=== PATIENT | female | born 1975 | race Caucasian/White ===

== ENCOUNTER 2019-10-18 11:30 | Emergency (ER) | payer SELFPAY ==
[~2019-10-18] VITALS: Ht 157.5 cm; Wt 78.9 kg
[2019-10-18 12:02] VITALS: Ht 157.5 cm; Wt 78.9 kg
[2019-10-18 13:00] LABS: microscopic required? NO
[2019-10-18 13:17] LABS: urine erythrocyte NEGATIVE (NEGATIVE)
[2019-10-18 15:38] VITALS: BP 111/50
== END 2019-10-18 15:38 | disposition home or self-care (01) ==
LOC: ED 11:30
PROVIDERS: Student in an Organized Health Care Education/Training Program
DX: A08.4 Viral intestinal infection, unspecified (principal); Z86.2 Personal history of diseases of the blood and blood-forming organs and certain disorders involving the immune mechanism
CPT/HCPCS: 87804; J2405